=== PATIENT | female | born 1990 | race Two or more races ===

== ENCOUNTER 2024-08-28 23:05 | Emergency (ER) | payer OTHER ==
[~2024-08-28] VITALS: Ht 149.9 cm; Wt 89.0 kg
[2024-08-29] MEDS ORDERED: ACET500T58 PO (00:08)
[2024-08-29] MEDS ORDERED: CYCL-837 PO (00:08)
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
[2024-08-29] MEDS: ACETAMINOPHEN 325 MG TAB PO ONE (00:11)
[2024-08-29 00:29] VITALS: BP 113/83; PULSE 105; RESP 16; TEMP 98.6; O2SAT 96
== END 2024-08-29 00:31 | disposition home or self-care (01) ==
LOC: ER 23:05
DX: S16.1XXA Strain of muscle, fascia and tendon at neck level, initial encounter (principal); S56.911A Strain of unspecified muscles, fascia and tendons at forearm level, right arm, initial encounter; Z90.49 Acquired absence of other specified parts of digestive tract; Z90.89 Acquired absence of other organs; R51.9 Headache, unspecified; V49.88XA Car occupant (driver) (passenger) injured in other specified transport accidents, initial encounter; Y93.89 Activity, other specified; Y92.89 Other specified places as the place of occurrence of the external cause; Y99.8 Other external cause status